=== PATIENT | male | born 1955 | race Two or more races ===

== ENCOUNTER 2018-02-21 06:23 | Day surgery (SDC) | payer BC ==
[2018-02-21] VITALS (9 sets, daily range): BP systolic 101–147; BP diastolic 76–91
[~2018-02-21] VITALS: Ht 170.2 cm; Wt 81.6 kg
--- NOTE | 2018-02-21 06:11 | Anethesia Preoperative Eval ---
Anesthesia Pre-op PMH/ROS General Date of Evaluation: Feb 21, 2018 Time of Evaluation: 06:10 Anesthesiologist: magda ASA Score: ASA 3 Mallampati Score Class I : Soft palate, uvula, fauces, pillars visible Class II: Soft palate, uvula, fauces visible Class III: Soft palate, base of uvula visible Class IV: Only hard plate visible Mallampati Classification: Class II Surgeon: mauro Diagnosis: colon screening Surgical Procedure: egd/colonoscopy Anesthesia History: none Social History: smoking - nonsmoker Family History: no anesthesia problems Allergies: Coded Allergies: No Known Allergies (Unverified , 02/21/18) Medications: see eMAR Patient NPO?: Yes Past Medical History Cardiovascular: Reports: HTN, other - hypercholesterolemia Gastrointestinal/Genitourinary: Reports: GERD HEENT: Reports: other - throat cancer Anesthesia Pre-op Phys. Exam Physician Exam Last Vital Signs Date Time Temp Pulse Resp B/P (MAP) Pulse Ox O2 Delivery O2 Flow Rate FiO2 02/21/18 07:06 Room Air 02/21/18 06:58 97.0 87 18 130/89 100 Constitutional: NAD Neurologic: CN 2-12 intact Cardiovascular: RRR Respiratory: CTA Gastrointestinal: S/NT/ND Airway Exam Mallampati Score: Class II MO: full Neck: flexible TMD: 2fb ROM: full Anesthesia Pre-op A/P Risk Assessment & Plan Assessment: asa3 Plan: mac Status Change Before Surgery: No Pre-Antibiotics Drug: Yahaira Goins MD Feb 21, 2018 06:11
[2018-02-21] MEDS ORDERED: Propofol 200mg/20ml IV ONE (07:00)
[2018-02-21] MEDS ORDERED: LR 1000ml ONE (07:00)
[2018-02-21] MEDS ORDERED: Lidocaine 1% MPF 10mg/ml 5ml ONE (07:00)
[2018-02-21] MEDS ORDERED: LIPITOR20 MG ORAL (07:05)
[2018-02-21] MEDS ORDERED: blood pressure pill PO (07:05)
[2018-02-21] MEDS ORDERED: PANTOPRAZOLE SO40 MG ORAL (07:05)
--- NOTE | 2018-02-21 07:11 | Short Stay Surgery H&P ---
History of Present Illness History of Present Illness Chief Complaint see attached H&P HPI Dionte Chaney is a 62 year old male who was admitted on for EGD/Colon Patient History Allergies: Coded Allergies: No Known Allergies (Unverified , 02/21/18) Medication History Scheduled Atorvastatin Calcium* (Lipitor*), 20 MG ORAL DAILY, (Reported) Pantoprazole* (Pantoprazole*), 40 MG ORAL DAILY, (Reported) [blood pressure pill], Unknown Dose PO DAILY, (Reported) Physical Exam Vital Signs Last Vital Signs Date Time Temp Pulse Resp B/P (MAP) Pulse Ox O2 Delivery O2 Flow Rate FiO2 02/21/18 06:58 97.0 87 18 130/89 100 Room Air Plan Attestation Are the patient's medical conditions optimized for surgery? Cholo Almaguer MD Feb 21, 2018 07:11
--- NOTE | 2018-02-21 07:12 | Pre-Procedure Note/Attestation ---
Pre-Procedure Note/Attestation Complete Prior to Procedure Planned Procedure: not applicable Procedure Narrative: EGD, Colon Indications for Procedure Pre-Operative Diagnosis: GERD, screening Attestation I attest that I discussed the nature of the procedure; its benefits; risks and complications; and alternatives (and the risks and benefits of such alternatives ), prior to the procedure, with the patient (or the patient's legal fuels sales representative). I attest that, if there was a reasonable possibility of needing a blood transfusion, the patient (or the patient's legal fuels sales representative) was given the [facility] standardized written summary, pursuant to the Mejia Marah Blood Safety Act ([place] Health and Safety Code # 1645, as amended). I attest that I re-evaluated the patient just prior to the surgery and that there has been no change in the patient's H&P, except as documented below: Cholo Almaguer MD Feb 21, 2018 07:12
[2018-02-21] MEDS ORDERED: LR 1000ml 1,000 ML IVLG SCH (07:47)
[2018-02-21] MEDS ORDERED: DiphenhydrAMINE 50mg/ml Inj IVP PRN (08:00)
[2018-02-21] MEDS ORDERED: Midazolam 2mg/2ml Inj IVP PRN (08:00)
[2018-02-21] MEDS ORDERED: fentaNYL 100 mcg/2 mL IV PRN (08:00)
[2018-02-21] MEDS ORDERED: Atropine Inj 1mg/10ml Syr IV PRN (08:00)
--- NOTE | 2018-02-21 08:34 | Immediate Post-Op Evaluation ---
Immediate Post-Op Evalulation Immediate Post-Op Evalulation Procedure: egd/colonoscopy/bx Date of Evaluation: Feb 21, 2018 Time of Evaluation: 08:27 IV Fluids: 500ml lr Blood Products: none Estimated Blood Loss: negligible Blood Pressure Systolic: 101 Blood Pressure Diastolic: 76 Pulse Rate: 89 Respiratory Rate: 18 O2 Sat by Pulse Oximetry: 99 Temperature (Fahrenheit): 97.8 Pain Score (1-10): 0 Nausea: No Vomiting: No Complications none Patient Status: awake, reacts, patent Hydration Status: adequate Drug: Yahaira Goins MD Feb 21, 2018 08:34
--- NOTE | 2018-02-21 08:35 | 48 Hour Post Anesthesia Eval ---
Post Anesthesia Evaluation Procedure: egd/colonoscopy/bx Date of Evaluation: Feb 21, 2018 Time of Evaluation: 08:34 Blood Pressure Systolic: 129 0: 87 Pulse Rate: 76 Respiratory Rate: 18 Temperature (Fahrenheit): 97.8 O2 Sat by Pulse Oximetry: 99 Airway: patent Nausea: No Vomiting: No Pain Intensity: 0 Hydration Status: adequate Cardiopulmonary Status: stable Mental Status/LOC: patient returned to baseline Post-Anesthesia Complications: none Follow-up care needed: N/A Yahaira Amanda MD Feb 21, 2018 08:35
--- NOTE | 2018-02-21 11:36 | Endoscopy Procedure Note ---
Endoscopy Procedure Note General Indication for Procedure: JAY, screen Operative Findings/Diagnosis: jean, poor prep, polyp x 3 mod-severe Tics Specimen: yes Pt Tolerated Procedure Well: Yes Estimated Blood Loss: none Anesthesia Anesthesiologist: Miko Low Anesthesia: MAC, moderate sedation Medications Medication Given: see anesthesia record Inserted Devices Implant(s) used?: No GI Core Measures 50 yrs or older w/o bx or poly: Yes 10yrs. F/U not recommended: No If not recommended, why?: Inadequate Prep 10 yrs. F/U needed: No 18 years or older w/prev. colo: No Med reason:<3 yrs.: System Reason:<3 yrs.: Last colonoscopy >= to 3yrs: Yes Cholo Almaguer MD Feb 21, 2018 11:36
--- NOTE | 2018-02-21 11:38 | Brief Operative Note ---
Immediate Post Operative Note Operative Note Chief Complaint: JAY, screen Pre-op Diagnosis: GERD, screening Procedure: egd/colon bx/bx Post-op Diagnosis: jean, poor prep, polyp x 3 mod-severe Tics Surgeon: mauro Anesthesiologist: Miko guillaume Anesthesia: MAC Specimen: yes Complications: none Condition: stable Fluids: Given/recorded Estimated Blood Loss: none Drains: none Implant(s) used?: Yes Cholo Almaguer MD Feb 21, 2018 11:38
--- NOTE | 2018-02-22 11:30 | Operative Note - Dictated ---
DATE OF OPERATION: 02/21/2018 GASTROENTEROLOGY PROCEDURE REPORT PROCEDURE: Upper gastrointestinal endoscopy with biopsy as well as colonoscopy with biopsy. SURGEON: Cholo Almaguer M.D. ANESTHESIA: Please see the separate anesthesiologist's notes for details. PRE-ENDOSCOPIC DIAGNOSES: 1. Symptoms of gastroesophageal reflux. 2. Need for screening colonoscopy. POST-ENDOSCOPIC DIAGNOSES: 1. Mild erosive gastritis, status post biopsy of the antrum. 2. Status post random biopsies of the midesophagus. 3. Poor colonic preparation with solid stool seen in patches throughout the colon. 4. Diminutive polyps x2 in the proximal transverse colon and x1 in the distal transverse colon, status post biopsy removal. 5. Tiny papule of doubtful significance seen in the upper esophagus, status post biopsy. 6. Poor colonic preparation with solid stool seen in patches throughout the colon making proper visualization not possible. 7. Moderate to severe sigmoid diverticulosis. 8. Given the poor colonic preparation, large colonic masses or malignancies could be excluded, but smaller polyps may have been missed during this examination. DESCRIPTION OF PROCEDURE: The procedure, its risks, indications, alternatives, and possible complications including, but not limited to bleeding, infection, perforation, , and anesthesia complications were explained to the patient and informed consent was obtained. The patient was then sedated in the left lateral decubitus position. A diagnostic upper endoscope was introduced through the oropharynx and advanced to the duodenum without difficulty. The endoscope was then gradually withdrawn and mucosa examined carefully. Examination of the upper gastrointestinal mucosa revealed mild erosive gastritis, which was biopsied. The biopsies were also sent to pathology for review. There was a tiny papule seen in the upper esophagus, which was also biopsied doubtful significance. No obvious evidence of radiation injury was seen during this examination. The endoscope was removed. The rectal exam was done and the colonoscope was introduced in the rectum and advanced to the cecum. The cecum was identified by appearance of the ileocecal valve. The colonoscope was gradually withdrawn and the mucosa examined carefully. Examination of the colonic mucosa was made difficulty due to patches of solid stool seen throughout the colon, especially on the right side. The large masses could therefore be excluded, but smaller polyps could be missed during this examination. Two diminutive polyps were seen in the proximal transverse colon and one in the distal transverse colon, which were removed with biopsy forceps. There was evidence of moderate to severe sigmoid diverticulosis. The colonoscope was removed. The patient was sent to recovery in good condition. COMPLICATIONS: None. RECOMMENDATIONS: 1. Follow up biopsy results. 2. Long-term bowel regimen. 3. Repeat colonoscopy in one year. 4. Check and treat Helicobacter pylori if positive. Thank you for asking me to participate in the care of this patient. Cholo Almaguer M.D. DR: ISABELLA JOB#: [id number] CC: Dilip Ellison M.D.; Fax#: [phone]
== END 2018-02-21 09:05 | disposition home or self-care (01) ==
LOC: GAS 06:23
DX: Z12.11 Encounter for screening for malignant neoplasm of colon (principal); K29.50 Unspecified chronic gastritis without bleeding; K21.9 Gastro-esophageal reflux disease without esophagitis; K63.5 Polyp of colon; K57.90 Diverticulosis of intestine, part unspecified, without perforation or abscess without bleeding; I10 Essential (primary) hypertension; E78.00 Pure hypercholesterolemia, unspecified; Z85.9 Personal history of malignant neoplasm, unspecified; D12.3 Benign neoplasm of transverse colon
CPT/HCPCS: 94003; 94150